=== PATIENT | female | born 2000 | race American Indian/Alaskan Native ===

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

== ENCOUNTER 2023-01-01 05:22 | Emergency (ER) | payer OTHER, MEDICAID ==
[2023-01-01 05:49] VITALS: BP 138/92; PULSE 99
[2023-01-01] MEDS ORDERED: Ketorolac 30 MG/ML SDV IM ONE (05:51)
== END 2023-01-01 06:45 | disposition home or self-care (01) ==
LOC: DL.ED 05:22
DX: S01.511A Laceration without foreign body of lip, initial encounter (principal); F17.210 Nicotine dependence, cigarettes, uncomplicated; Y04.2XXA Assault by strike against or bumped into by another person, initial encounter; Y93.01 Activity, walking, marching and hiking
CPT/HCPCS: 70150; 96372; 99282; 99284; J1885

== ENCOUNTER 2024-03-10 22:39 | Emergency (ER) | payer MEDICAID, OTHER ==
[2024-03-10 22:55] VITALS: BP 119/73; PULSE 100
== END 2024-03-10 23:44 | disposition home or self-care (01) ==
LOC: DL.ED 22:39
DX: O99.891 Other specified diseases and conditions complicating pregnancy (principal); R10.9 Unspecified abdominal pain; Z3A.18 18 weeks gestation of pregnancy; Z79.899 Other long term (current) drug therapy; Y04.8XXA Assault by other bodily force, initial encounter
CPT/HCPCS: 99283; 99284